=== PATIENT | female | born 1970 | race American Indian/Alaskan Native ===

== ENCOUNTER 2018-04-19 16:25 | Outpatient (CLI) | payer OTHER | END 2018-04-19 16:37 | disposition home or self-care (01) | LOC: RAD 16:25 | DX: R07.1 Chest pain on breathing (principal) ==

== ENCOUNTER 2018-04-26 08:15 | Inpatient (IN) | payer OTHER ==
[~2018-04-26] VITALS: Ht 167.6 cm; Wt 79.4 kg
[2018-04-26] MEDS ORDERED: PREMPRO 0.625-1 EAC1 PO (10:20)
[2018-04-26] MEDS ORDERED: TOPROL XL50 M1 PO (10:20)
[2018-04-26] MEDS ORDERED: TYLENOL ARTHRI650 MG PO (10:21)
[2018-04-26] MEDS ORDERED: OCUVITE LUTEIN1 EAC2 PO (10:21)
[2018-04-26] MEDS ORDERED: LOSARTAN POTASS50 MG PO (10:21)
[2018-04-26] MEDS ORDERED: PERCOCET 10-321 EACH PO (10:22)
[2018-05-02] MEDS ORDERED: DOCUSATE SODIU100 MG PO (09:59)
[2018-05-02] MEDS ORDERED: PERCOCET 5-3251 EACH PO (10:03)
[2018-05-02] MEDS ORDERED: CLONAZEPAM0.5 M1 PO (10:03)
== END 2018-05-03 14:12 | disposition home or self-care (01) | DRG 454 ==
LOC: SURH 04-30 08:15 → O/R 05-02 04:50 → SURH 05-02 04:50
PROVIDERS: ADMIT Orthopaedic Surgery Orthopaedic Surgery of the Spine
PROC: 0RG20A0 Fusion of 2 or more Cervical Vertebral Joints with Interbody Fusion Device, Anterior Approach, Anterior Column, Open Approach (ICD-10-PCS; 2018-05-02)
PROC: 0RG2071 Fusion of 2 or more Cervical Vertebral Joints with Autologous Tissue Substitute, Posterior Approach, Posterior Column, Open Approach (ICD-10-PCS; 2018-05-02)
PROC: 07DS3ZZ Extraction of Vertebral Bone Marrow, Percutaneous Approach (ICD-10-PCS; 2018-05-02)
PROC: 0RT30ZZ Resection of Cervical Vertebral Disc, Open Approach (ICD-10-PCS; principal; 2018-05-02 07:00)
DX: M47.12 Other spondylosis with myelopathy, cervical region (principal); M50.021 Cervical disc disorder at C4-C5 level with myelopathy; I10 Essential (primary) hypertension

== ENCOUNTER 2018-06-18 10:35 | Outpatient (CLI) | payer OTHER ==
[~2018-06-18 10:35] MED LIST: CLONAZEPAM0.5 M1 PO; DOCUSATE SODIU100 MG PO; LOSARTAN POTASS50 MG PO; OCUVITE LUTEIN1 EAC2 PO; PERCOCET 10-321 EACH PO; PERCOCET 5-3251 EACH PO; PREMPRO 0.625-1 EAC1 PO; TOPROL XL50 M1 PO; TYLENOL ARTHRI650 MG PO
== END 2018-06-18 10:42 | disposition home or self-care (01) ==
LOC: RAD 10:35
DX: M50.00 Cervical disc disorder with myelopathy, unspecified cervical region (principal); Z98.1 Arthrodesis status

== ENCOUNTER 2018-09-25 07:18 | Outpatient (CLI) | payer OTHER | END 2018-09-25 07:23 | disposition home or self-care (01) | LOC: SONOGRAMA 07:18 | DX: M50.30 Other cervical disc degeneration, unspecified cervical region (principal); Z98.1 Arthrodesis status ==